=== PATIENT | female | born 1940 | race Caucasian/White ===

== ENCOUNTER 2016-10-16 19:29 | Emergency (ER) | payer BC ==
[~2016-10-16] VITALS: Ht 162.6 cm; Wt 75.0 kg
[2016-10-16 20:50] LABS: ADD MIUA? YES; BILIRUBIN NEGATIVE; BLOOD SMALL; COLOR YELLOW ((YELLOW)); GLUCOSE (STRIP) NEGATIVE; KETONES NEGATIVE; LEUKOCYTES LARGE; NITRITE NEGATIVE; PROTEIN (STRIP) 100; SPECIFIC GRAVITY 1.018 (1.000-1.030); UROBILINOGEN 0.2 MG/DL (0.2-1.0)
[2016-10-16 20:54] LABS: MCH 30.2 PG (29.0-34.0); MCHC 32.8 G/DL (30.0-36.0); MCV 92.2 FL (83-99); MEAN PLAT.VOLUME 10.3 uM^3 (9.5-12.4); PLATELET COUNT 271 K/uL (156-360); RBC DIS.WIDTH-CV 13.4 % (11.8-14.6); RBC DIS.WIDTH-SD 45.6 % (39-53); WHITE BLOOD COUNT 6.8 K/uL (4.1-10.2)
[2016-10-16 21:01] LABS: BACTERIA 2+ /HPF; EPITHELIAL CELLS 2+ /HPF; MUCUS NONE SEEN /LPF; RED BLOOD CELLS 30-40 /HPF (0-5); WHITE BLOOD CELLS TNTC /HPF (0-5); WHITE BLOOD CELLS CLUMP MOD /HPF (0-5)
[2016-10-16 21:02] LABS: CHLORIDE 110 mEq/L (99-109); POTASSIUM 4.3 mEq/L (3.7-5.4); SODIUM 142 mEq/L (136-147)
[2016-10-16 21:03] LABS: GLUCOSE 109 mg/dL (70-99)
[2016-10-16 21:05] LABS: ANION GAP 8 MEQ/L (2-14)
[2016-10-16 21:07] LABS: GFR ESTIMATE (CALCULATED) 42 mL/min/
[2016-10-16 21:08] LABS: UREA NITROGEN (BUN) 29 mg/dL (9-23)
[2016-10-16] MEDS ORDERED: PYRIDIUM100 MG PO (21:21)
[2016-10-16] MEDS ORDERED: LEVAQUIN750 MG PO (21:21)
[2016-10-16 21:52] VITALS: BP 155/89
== END 2016-10-16 21:52 | disposition home or self-care (01) ==
LOC: EME 19:29
PROVIDERS: Emergency Medicine
DX: N39.0 Urinary tract infection, site not specified (principal); R03.0 Elevated blood-pressure reading, without diagnosis of hypertension; Z87.891 Personal history of nicotine dependence
CPT/HCPCS: 80048; 81003; 85027; 87077; 87086; 87186; 99281; 99284